=== PATIENT | female | born 1990 | race Caucasian/White ===

== ENCOUNTER 2021-04-04 00:54 | Inpatient (IN) | payer BC, OTHER ==
[2021-04-04] MEDS: Lactated Ringer's 1,000 ML IV SCH ×2 (01:00→03:03)
[2021-04-04] MEDS ORDERED: Acetaminophen 500 MG TAB PO PRN (01:25)
[2021-04-04] MEDS ORDERED: Lidocaine 1% (PF) 30 ML VIAL SC PRN (01:25)
[2021-04-04] MEDS ORDERED: Ondansetron PF 4 MG/2 ML Vial IVP PRN ×3 (01:25→17:42)
[2021-04-04] MEDS ORDERED: Carboprost 250 MCG/ML AMP IM PRN (01:25)
[2021-04-04] MEDS ORDERED: Promethazine HCl 25 MG/ML VIAL IM PRN ×3 (01:25→17:42)
[2021-04-04] MEDS ORDERED: Ibuprofen 800 MG TAB PO PRN (01:25)
[2021-04-04] MEDS ORDERED: Methylergonovine 0.2 MG/ML VIAL IM PRN (01:25)
[2021-04-04] MEDS ORDERED: Misoprostol 200 MCG TAB PR PRN (01:25)
[2021-04-04] MEDS ORDERED: hydrALAZINE 20 MG/ML VIAL SLOW IVP PRN (01:25)
[2021-04-04] MEDS ORDERED: NS w/ Oxytocin 30 units 500 ML IV SCH ×2 (01:30→09:15)
[2021-04-04] MEDS ORDERED: Fentanyl 2 mcg/Bup 0.1% Cadd 100 ML ONE (01:30)
[2021-04-04 01:38] VITALS: BMI 30.7
[2021-04-04 01:41] LABS: Hemoglobin 13.7 g/dL (12.0-15.5); Mean Corpuscular HGB CONC 36.6 g/dL (32.0-36.0); Mean Corpuscular Hemoglobin 32.7 pg (27.0-33.0); Mean Corpuscular Volume 89.3 fl (81.6-98.3); Mean Platelet Volume 11.2 fl (7.4-10.4); Platelet Count 230 10x3/uL (150-450); RBC Distribution Width 12.4 % (11.5-14.5); Red Blood Cell (RBC) Count 4.19 10x6/uL (3.90-5.03)
[2021-04-04 02:18] LABS: Syphilis Antibody Nonreactive (Nonreactive); Syphilis Antibody Index 0.02 S/CO (<1.00 Non-Reactive)
[2021-04-04 02:19] LABS: Hep B Surf Ag Non-Reactive S/CO (NonReactive)
[2021-04-04 02:20] LABS: HBSAg Index 0.21 S/CO (0-0.99)
[2021-04-04] MEDS ORDERED: Lactated Ringer's 500 ML IV PRN (02:53)
[2021-04-04] MEDS ORDERED: diphenhydrAMINE 50 MG/ML VIAL IVP PRN ×2 (02:53→17:42)
[2021-04-04] MEDS ORDERED: Naloxone HCl 0.4 mg/ml Vial IVP PRN ×4 (02:53→17:42)
[2021-04-04] MEDS ORDERED: ePHEDrine Sulfate 50 MG/10 ML VIAL SLOW IVP PRN (02:53)
[2021-04-04] MEDS ORDERED: Hydrocerin (Eucerin) Cream 120 gm Jar TOP PRN ×2 (02:53→17:42)
[2021-04-04] MEDS ORDERED: Communication Order-Pharmacy FS SCH ×2 (03:00→17:45)
[2021-04-04] MEDS ORDERED: Fentanyl 2 mcg/Bupivacaine 0.1% Cassette 100 ML EPIDURAL SCH (03:00)
[2021-04-04] MEDS: Dextrose 5%-Lactated Ringers 1,000 ML IV SCH ×2 (09:00→20:32)
[2021-04-04] MEDS ORDERED: ePHEDrine Sulfate 50 MG/10 ML VIAL ONE (13:45)
[2021-04-04] MEDS ORDERED: Bupivacaine 0.25% HCL 30 ML VIAL ONE (13:45)
[2021-04-04 15:13] LABS: SARS-CoV-2 PCR by NAA Not Detected (NotDetected)
[2021-04-04] MEDS ORDERED: Famotidine/PF 20 mg/2ml Vial SLOW IVP PRN (15:25)
[2021-04-04] MEDS ORDERED: Bicitra 30 ML UDCUP PO PRN (15:25)
[2021-04-04] MEDS ORDERED: Azithromycin 500 MG VIAL ONE (15:30)
[2021-04-04] MEDS ORDERED: Calcium Carbonate 500 MG ChewTAB PO PRN (15:30)
[2021-04-04] MEDS ORDERED: Morphine PF 10 MG/10 ML VIAL ONE (15:52)
[2021-04-04] MEDS ORDERED: Lidocaine 1% PF 5 ML VIAL ONE (16:04)
[2021-04-04] MEDS ORDERED: Misoprostol 200 MCG TAB ONE (16:05)
[2021-04-04] MEDS ORDERED: Carboprost 250 MCG/ML AMP ONE (16:06)
[2021-04-04] MEDS ORDERED: Methylergonovine 0.2 MG/ML VIAL ONE (16:06)
[2021-04-04] MEDS ORDERED: Dexamethasone 4 mg/ml Vial ONE (16:45)
[2021-04-04] MEDS ORDERED: Lidocaine 2% MPF 10 ML AMP (For Epidural Use) ONE ×2 (16:45→16:52)
[2021-04-04] MEDS ORDERED: PHENYLEPHRINE-NS 100 MCG/ML 10 ML SYRINGE ONE (16:45)
[2021-04-04] MEDS ORDERED: Ondansetron PF 4 MG/2 ML Vial ONE (16:45)
[2021-04-04] MEDS ORDERED: EPINEPHrine 1 MG/10 ML Abboject SYRINGE ONE (16:45)
[2021-04-04] MEDS ORDERED: Oxytocin 10 UNITS/ML VIAL ONE ×2 (16:45→17:32)
[2021-04-04 16:57] LABS: HIV (1/2) Antibody/Antigen Non-Reactive (NonReactive); HIV 1/2 INDEX 0.11 S/CO (<1.00)
[2021-04-04] MEDS ORDERED: CEFAZOLIN 2 GM in Premix Bag 1 BAG IVPB SCH (17:00)
[2021-04-04] MEDS ORDERED: Ketorolac Tromethamine 30 MG/ML VIAL ONE (17:31)
[2021-04-04] MEDS ORDERED: HYDROmorphone 2 MG/ML VIAL SLOW IVP PRN (17:42)
[2021-04-04] MEDS ORDERED: Promethazine HCl 25 MG SUPP PR PRN (17:42)
[2021-04-04] MEDS ORDERED: Ketorolac Tromethamine 30 MG/ML VIAL IVP PRN (17:42)
[2021-04-04] MEDS ORDERED: Ondansetron HCl/PF 4 MG/2 ML Vial IVP PRN (17:42)
[2021-04-04] MEDS ORDERED: L&D-Morphine 4 MG/ML VIAL SLOW IVP PRN (17:42)
[2021-04-04] MEDS ORDERED: Meperidine HCl/PF 25 MG/ML VIAL SLOW IVP PRN (17:42)
[2021-04-04] MEDS ORDERED: Naloxone HCl 0.4 mg/ml Vial IV PRN (17:42)
[2021-04-04] MEDS ORDERED: Ketorolac Tromethamine 30 MG/ML VIAL IVP SCH (17:45)
[2021-04-04] MEDS ORDERED: Simethicone Chewable 80 MG TAB PO PRN (17:48)
[2021-04-04] MEDS ORDERED: Bisacodyl 10 MG SUPP PR PRN (17:48)
[2021-04-04] MEDS ORDERED: HYDROcodone/Acetaminophen 5/325 mg Tablet PO PRN (17:48)
[2021-04-04] MEDS ORDERED: Boostrix 0.5 ML (Tdap) VIAL IM ONE (17:48)
[2021-04-04] MEDS: Gentamicin 350 MG, Admixture Fee 1 EACH in Sodium Chloride 0.9% 100 ML IVPB SCH (21:35)
[2021-04-04] MEDS: Docusate Calcium (SURFAK) 240 MG CAP PO SCH (21:50)
[2021-04-05] MEDS: Ampicillin 2 GM in Sodium Chloride 0.9% 100 ML IVPB SCH ×4 (00:15→17:45)
[2021-04-05] MEDS: Acetaminophen 325 MG TAB PO PRN ×3 (03:30→20:36)
[2021-04-05] MEDS: Dextrose 5%-Lactated Ringers 1,000 ML IV SCH ×2 (03:33→12:01)
[2021-04-05] MEDS ORDERED: traMADol HCl 50 MG TAB PO PRN (07:29)
[2021-04-05] MEDS: Docusate Calcium (SURFAK) 240 MG CAP PO SCH ×2 (08:21→20:35)
[2021-04-05 08:23] LABS: Hemoglobin 9.4 g/dL (12.0-15.5); Mean Corpuscular HGB CONC 34.7 g/dL (32.0-36.0); Mean Corpuscular Hemoglobin 32.4 pg (27.0-33.0); Mean Corpuscular Volume 93.4 fl (81.6-98.3); Mean Platelet Volume 11.5 fl (7.4-10.4); Platelet Count 173 10x3/uL (150-450); RBC Distribution Width 13.3 % (11.5-14.5); White Blood Cell (WBC) Count 15.2 10x3/uL (3.5-10.5)
[2021-04-05] MEDS: traMADol HCl 50 MG TAB PO PRN ×2 (13:18→16:38)
[2021-04-05] MEDS ORDERED: Ibuprofen 800 MG TAB PO PRN (18:04)
[2021-04-05] MEDS: Gentamicin 350 MG, Admixture Fee 1 EACH in Sodium Chloride 0.9% 100 ML IVPB SCH (21:59)
[2021-04-06] MEDS ORDERED: Ibuprofen 800 MG TAB PO PRN (01:43)
[2021-04-06] MEDS: Ampicillin 2 GM in Sodium Chloride 0.9% 100 ML IVPB SCH ×2 (02:49→04:02)
[2021-04-06] MEDS: Acetaminophen 325 MG TAB PO PRN ×3 (04:00→13:40)
[2021-04-06] MEDS: traMADol HCl 50 MG TAB PO PRN ×2 (04:01→09:11)
[2021-04-06] MEDS: Dextrose 5%-Lactated Ringers 1,000 ML IV SCH ×2 (07:16→12:34)
[2021-04-06] MEDS: Docusate Calcium (SURFAK) 240 MG CAP PO SCH (09:10)
[2021-04-06 11:33] VITALS: BP 114/80; TEMP 97.7
== END 2021-04-06 14:48 | disposition home or self-care (01) | DRG 786 ==
LOC: CSHERS 00:54 → CSHLD 01:11 → UNDOADMIN 01:15 → CSHLD 01:15 → CSHPP 04-05 06:05
PROVIDERS: ADMIT Obstetrics & Gynecology; ATTEND Obstetrics & Gynecology
PROC: 10D00Z1 Extraction of Products of Conception, Low, Open Approach (ICD-10-PCS; principal; 2021-04-04)
DX: O48.0 Post-term pregnancy (principal); O41.1230 Chorioamnionitis, third trimester, not applicable or unspecified; Z3A.41 41 weeks gestation of pregnancy; Z37.0 Single live birth; Z20.822 Contact with and (suspected) exposure to COVID-19; O62.0 Primary inadequate contractions; O75.81 Maternal exhaustion complicating labor and delivery; O76 Abnormality in fetal heart rate and rhythm complicating labor and delivery
CPT/HCPCS: 36415; 51702; 85027; 86780; 86850; 86900; 86901; 87340; 87389; J0171; J0290; J0690; J1100; J1580; J1885; J2274; J2405; J2590; J3490; S0020; U0003; U0005